=== PATIENT | male | born 1950 | race Two or more races ===

== ENCOUNTER 2016-09-08 01:53 | Emergency (ER) | payer OTHER ==
[~2016-09-08] VITALS: Ht 170.2 cm; Wt 88.0 kg
[2016-09-08] MEDS ORDERED: BLOOD PRESSURE MED (02:01)
[2016-09-08] MEDS ORDERED: TESTOSTERONE (02:01)
[2016-09-08] MEDS ORDERED: PRAV20TA2 PO (02:01)
[2016-09-08] MEDS ORDERED: FAMOTIDINE 20 MG/2 ML IVP ONE (02:30)
[2016-09-08] MEDS ORDERED: SODIUM CHLORIDE 0.9% 1,000ML IVBOLUS ONE (02:30)
[2016-09-08] MEDS ORDERED: MAALOX/HYOSCYAMINE/LIDOCAINE 45 ML BOTTLE PO ONE (02:30)
[2016-09-08] MEDS ORDERED: MAALOX/HYOSCYAMINE/LIDOCAINE 45 ML BOTTLE ONE (02:40)
[2016-09-08] MEDS ORDERED: FAMOTIDINE 20 MG/2 ML ONE (02:40)
[2016-09-08 02:45] VITALS: BP 153/83
[2016-09-08 02:52] LABS: ASPARTATE AMINO TRANSFERASE 16 U/L (15-37); BLOOD UREA NITROGEN 26 mg/dL (7-18)
[2016-09-08] MEDS ORDERED: PANTOPRAZOLE 40 MG IV IVP ONE (03:00)
[2016-09-08 03:05] LABS: IS PT STATUS REG ER OR PRE ER? YES
[2016-09-08] MEDS ORDERED: PANTOPRAZOLE 40 MG IV ONE (03:10)
== END 2016-09-08 04:06 | disposition home or self-care (01) ==
LOC: ED 03:24
DX: K26.3 Acute duodenal ulcer without hemorrhage or perforation (principal); J20.9 Acute bronchitis, unspecified; I10 Essential (primary) hypertension; E78.00 Pure hypercholesterolemia, unspecified
CPT/HCPCS: 36415; 76700; 80053; 83690; 84484; 85025; 86677; 93005; 96361; 96374; 96375; 99285; C9113; J7030; S0028

== ENCOUNTER 2018-02-28 00:06 | Emergency (ER) | payer OTHER, MEDICARE ==
[~2018-02-28] VITALS: Ht 170.2 cm; Wt 85.0 kg
[~2018-02-28 00:06] MED LIST: BLOOD PRESSURE MED; PRAV20TA2 PO; TESTOSTERONE
[2018-02-28] MEDS ORDERED: GABA300C10 PO (00:26)
[2018-02-28] MEDS ORDERED: LISI-170 PO (00:26)
[2018-02-28] MEDS ORDERED: DEXL60CA2 PO (00:26)
[2018-02-28] MEDS ORDERED: TRAM50TA2 PO (00:26)
[2018-02-28] MEDS ORDERED: OMEP40CA6 PO (00:26)
[2018-02-28] MEDS ORDERED: MAALOX/HYOSCYAMINE/LIDOCAINE 45 ML BTL PO ONE (01:00)
[2018-02-28] MEDS ORDERED: MAALOX/HYOSCYAMINE/LIDOCAINE 45 ML BTL ONE (01:03)
[2018-02-28 01:12] LABS: BASOPHILS # (AUTO) 0.03 x10^3/uL (0-0.1); BASOPHILS % (AUTO) 1 % (0-1); EOSINOPHILS % (AUTO) 4 % (1-7); LYMPHOCYTES # (AUTO) 1.95 x10^3/uL (1-3.4); LYMPHOCYTES % (AUTO) 34 % (22-44); MD NO; MEAN CORPUSCULAR HEMOGLOBIN 31.3 pg (27.5-34.5); MEAN CORPUSCULAR HGB CONC 34.9 g/dL (33.2-36.2); MEAN CORPUSCULAR VOLUME 89.7 fL (81-97); MEAN PLATELET VOLUME 8.3 fL (7.4-10.4); MONOCYTES # (AUTO) 0.48 x10^3/uL (0.2-0.8); MONOCYTES % (AUTO) 8 % (2-9); NEUTROPHILS # (AUTO) 3.07 x10^3/uL (1.8-6.8); NEUTROPHILS % (AUTO) 54 % (42-75); PLATELET COUNT 180 x10^3/uL (130-400); RED BLOOD COUNT 4.87 x10^6/uL (4.38-5.82); RED CELL DISTRIBUTION WIDTH 16.6 % (9.4-14.8)
[2018-02-28 01:24] LABS: ALANINE AMINOTRANSFERASE 28 U/L (12-78); ALBUMIN 3.4 g/dL (3.4-5.0); ANION GAP 6 mmol/L (5-15); CALCIUM 8.6 mg/dL (8.5-10.1); CHLORIDE 113 mmol/L (98-107); CREATININE 1.06 mg/dL (0.7-1.3)
[2018-02-28 01:27] LABS: ALKALINE PHOSPHATASE 69 U/L (45-117); BILIRUBIN,TOTAL 0.3 mg/dL (0.2-1.0); TOTAL PROTEIN 6.7 g/dL (6.4-8.2)
[2018-02-28 02:22] VITALS: BP 149/78
== END 2018-02-28 02:50 | disposition home or self-care (01) ==
LOC: ED 01:10
DX: R10.13 Epigastric pain (principal); E78.00 Pure hypercholesterolemia, unspecified; I10 Essential (primary) hypertension
CPT/HCPCS: 36415; 76700; 80053; 83690; 85025; 99284